=== PATIENT | male | born 1940 | race Caucasian/White ===

== ENCOUNTER 2024-08-20 16:35 | Emergency (ER) | payer MEDICARE, BC ==
[2024-08-20 16:41] VITALS: BP 142/83; PULSE 60
[2024-08-20 17:10] LABS: BASOPHILS ABSOLUTE AUTO 0.01 10^3/uL (0.00-0.50); BASOPHILS PERCENT AUTO 0.2 % (0-1); EOSINOPHILS ABSOLUTE AUTO 0.07 10^3/uL (0.00-1.50); EOSINOPHILS PERCENT AUTO 1.2 % (0-6); HEMATOCRIT 34.4 % (42.0-52.0); HEMOGLOBIN 11.9 g/dL (14.0-18.0); IMMATURE GRAN ABSOLUTE AUTO 0.05 10^3/uL (0.00-0.49); IMMATURE GRAN PERCENT AUTO 0.9 % (0.0-4.9); LYMPHOCYTES PERCENT AUTO 12.2 % (24-44); MEAN CORPUSCULAR HEMOGLOBIN 29.9 pg (27.0-32.0); MEAN CORPUSCULAR HGB CONC 34.6 g/dL (32.0-36.0); MEAN CORPUSCULAR VOLUME 86.4 fL (83.0-97.0); MONOCYTES ABSOLUTE AUTO 0.69 10^3/uL (0.00-1.50); NEUTROPHILS ABSOLUTE AUTO 4.23 x10^3/uL (1.80-8.00); NEUTROPHILS PERCENT AUTO 73.5 % (41-71); PLATELET COUNT,PLT 175 10^3/uL (150-400); RED BLOOD CELL COUNT 3.98 x10^6/uL (4.50-6.00); WHITE BLOOD CELL COUNT,WBC 5.8 10^3/uL (4.0-11.0)
[2024-08-20] MEDS: Take Home: predniSONE 20 MG, 2 Tab Pack PO ONE (17:49)
== END 2024-08-20 17:58 | disposition home or self-care (01) ==
LOC: CC.ED 16:35
DX: M12.532 Traumatic arthropathy, left wrist (principal); I10 Essential (primary) hypertension; Z79.82 Long term (current) use of aspirin; Z79.899 Other long term (current) drug therapy; W22.8XXA Striking against or struck by other objects, initial encounter
CPT/HCPCS: 36415; 73110; 84550; 85025; 85651; 86140; 99283; J7512